=== PATIENT | female | born 1965 | race Caucasian/White ===

== ENCOUNTER 2016-12-06 22:06 | Emergency (ER) | payer OTHER ==
[~2016-12-06] VITALS: Ht 170.2 cm; Wt 116.0 kg
[~2016-12-06 22:06] MED LIST: ENAL20TA PO; HYDR12.56 PO; IBUP-232 PO
[2016-12-06 22:10] VITALS: BP 151/105; PULSE 86; RESP 16; TEMP 97.6
--- NOTE | 2016-12-06 22:27 | PD ---
HPI Chief Complaint: ENT Complaint Time Seen by Provider: 22:24 Travel History International Travel<30 days: No Contact w/Intl Traveler<30days: No Traveled to known affect area: No History of Present Illness HPI 51 YO F presents to the ED for evaluation of 1 week history of LEFT eye pain. Patient states that she had a 2 day period where the symptoms had resolved but it worsened today. She denies photophobia. She endorses increased tearing. She denies purulent discharge from the medial canthus. She denies elenita sensation. She denies pain with range of motion. She denies known injury. The patient was evaluated today by an outside provider, diagnosed with conjunctivitis, prescribed ketotifen and ofloxacin. She has not filled these medications. PFSH Past Medical History Cancer: Yes (BCC) Cardiovascular Problems: Yes (htn not on meds at this time) Diabetes: No Diminished Hearing: No Hepatitis: No Hiatal Hernia: No Hypertension: Yes (NOT CONTROLLED- not taking meds at this time) Thyroid Disease: No Past Surgical History Gynecologic Surgery: Yes (hysterectomy) Hysterectomy: Yes Oral Surgery: Yes (AGE 7 T&A) Pacemaker: No Tonsillectomy: Yes Other Surgery: Yes Social History Alcohol Use: Yes (socially mix drinks) Tobacco Use: Yes (1/2 ppd of cigs) Substance Use: No Allergies-Medications (Allergen,Severity, Reaction): Coded Allergies: No Known Allergies (Verified , 12/06/16) Reported Meds & Prescriptions Reported Meds & Active Scripts Active Reported Hydrochlorothiazide 25 Mg Tab 25 Mg PO DAILY Enalapril (Enalapril Maleate) 20 Mg Tab 40 Mg PO DAILY Review of Systems Except as stated in HPI: all other systems reviewed are Neg Physical Exam Narrative GENERAL: Well-nourished, well-developed obese, intoxicated white female in no acute distress. SKIN: Focused skin assessment warm/dry. HEAD: Normocephalic. EYES: No scleral icterus. PERRLA. EOMI. FOCUSED LEFT EYE EXAM: Mild injection. Mild increased tearing. FUNDUSCOPIC EXAM: The left funduscopic exam appeared within normal limits without papilledema, A-V nicking or blood associated with the optic disc. Fluorescein staining reveals no corneal abrasion or FB under Wood's lamp. NECK: Supple, trachea midline. No JVD or lymphadenopathy. CARDIOVASCULAR: Regular rate and rhythm without murmurs, gallops, or rubs. RESPIRATORY: Breath sounds equal bilaterally. No accessory muscle use. GASTROINTESTINAL: Abdomen soft, non-tender, nondistended. MUSCULOSKELETAL: No cyanosis, or edema. BACK: Nontender without obvious deformity. No CVA tenderness. Data Data Last Documented VS Vital Signs Date Time Temp Pulse Resp B/P (MAP) Pulse Ox O2 Delivery O2 Flow Rate FiO2 12/06/16 22:10 97.6 86 16 151/105 (120) Orders Orders Proparacaine 0.5% Opth Soln (Alcaine 0.5 (12/06/16 22:30) Ofloxacin 0.3% Opth Soln (Ocuflox 0.3% O (12/06/16 22:45) MDM Medical Decision Making Medical Screen Exam Complete: Yes Emergency Medical Condition: Yes Differential Diagnosis Conjunctivitis versus corneal abrasion versus foreign body versus iritis versus blepharitis versus other Narrative Course 51 YO F presents to the ED for evaluation of 1 week history of LEFT eye pain. Patient states that she had a 2 day period where the symptoms had resolved but it worsened today. She endorses increased tearing. She denies purulent discharge from the medial canthus, elenita sensation, photophobia, pain with range of motion, known injury. The patient was evaluated today by an outside provider, diagnosed with conjunctivitis, prescribed KP ketotifen and ofloxacin. She has not filled these medications. Vitals reviewed. Physical exam reveals an intoxicated white female in NAD. The left eye is mildly injected, but the exam is otherwise unremarkable. The ofloxacin drops were ordered in the ED and a single dose was administered here. She is instructed to fill the prescriptions tomorrow morning, instill the medications as prescribed, follow- up with the senior games technician should symptoms continue. The patient called me back to the room multiple times to further explain her diagnosis and instructions. These were all detailed in the discharge instructions. A friend is at bedside to drive her home. The patient is stable and discharged home. Diagnosis Primary Impression: Conjunctivitis, left eye Qualified Codes: H10.32 - Unspecified acute conjunctivitis, left eye Referrals: Roxy Riojas MDturn laster Patient Instructions: Conjunctivitis (ED), General Instructions Departure Forms: Tests/Procedures, Work Release Enter return to work date: Dec 10, 2016 Additional Instructions: Avoid touching the eye. Wash hands before and after handling the eye. Fill the prescriptions provided by the other provider today. Instill the eye drops as prescribed. Do not touch the tip of the bottle to the eye. Should symptoms spread to the unaffected eye you may treat with the ophthalmic solutions prescribed today. Wash your pillowcases after symptoms have resolved. Increase handwashing frequency to avoid spread to other populations. Follow-up with the senior games technician. Return to the ED for any urgent or emergent medical condition. Disposition: 01 DISCHARGE HOME Condition: Stable Tiffany Chen Dec 06, 2016 22:27
[2016-12-06] MEDS ORDERED: ENAL20TA PO (22:28)
[2016-12-06] MEDS ORDERED: HYDR25TA5 PO (22:28)
[2016-12-06] MEDS ORDERED: PROPARACAINE HCL 0.5% OPHT SOLN 15 ML BTL LEFT EYE ONE (22:30)
[2016-12-06] MEDS ORDERED: OFLOXACIN 0.3% OPTH SOLN 5 ML BTL LEFT EYE ONE (22:45)
== END 2016-12-06 23:01 | disposition home or self-care (01) ==
LOC: PHEFT 22:06
DX: H10.32 Unspecified acute conjunctivitis, left eye (principal); I10 Essential (primary) hypertension; Z85.828 Personal history of other malignant neoplasm of skin
CPT/HCPCS: 99283